=== PATIENT | male | born 1995 | race Caucasian/White ===

== ENCOUNTER → 2018-06-11 | Outpatient (CLI) | payer OTHER, SELFPAY ==
[2018-06-05 13:33] VITALS: BMI 21.4
--- NOTE | 2018-06-11 17:50 | RAD_ITS ---
STUDY: X-RAY CHEST REASON FOR EXAM: Male, 22 years old. Pneumonia TECHNIQUE: Frontal and lateral views COMPARISON: None. FINDINGS: The lungs are expanded. There is a lingular infiltrate. Faint nodular densities at the right mid lung field. Normal size heart. Normal mediastinum and evan. Normal visualized pulmonary arteries. Normal visualized aortic arch and descending thoracic aorta. Normal visualized thoracic spine. Normal visualized ribs, clavicles, and shoulders. There is no demonstrated abnormality of the visualized soft tissue structures of the upper abdomen. RAD/Chest PA and Lateral IMPRESSION: Lingular infiltrate. Faint right mid lung nodular densities. Electronically Signed: Angus Rodriguez DO at 20:03 EDT Tel [phone], Service support ,
== END | disposition home or self-care (01) ==
LOC: RAD 17:41
PROVIDERS: Family Provider Family Medicine; PCP Family Medicine; Referring Provider Family Medicine; Visit Provider Family Medicine
DX: J18.9 Pneumonia, unspecified organism (principal)
CPT/HCPCS: 71046

== ENCOUNTER → 2018-06-18 | Outpatient (CLI) | payer OTHER, SELFPAY ==
[2018-06-05 13:33] VITALS: BMI 21.4
--- NOTE | 2018-06-18 18:07 | RAD_ITS ---
STUDY: X-RAY CHEST REASON FOR EXAM: Male, 23 years old. Pneumonia TECHNIQUE: PA and lateral views of the chest. COMPARISON: 06/11/2017 FINDINGS: There is decreased airspace opacification along the lingula. Previously seen faint right mid lung nodular densities are not visualized on current exam. There is no demonstrated pleural abnormality. Normal size heart. Normal mediastinum and evan. Normal visualized pulmonary arteries. Normal visualized aortic arch and descending thoracic aorta. Normal visualized thoracic spine. Normal visualized ribs, clavicles, and shoulders. There is no demonstrated abnormality of the visualized soft tissue structures of the upper abdomen. RAD/Chest PA and Lateral IMPRESSION: Resolving lingular pneumonia. Follow-up examination to resolution recommended. Electronically Signed: Gypsy Dorado MD at 3:03 EDT , Service support ,
[2018-06-18 18:30] LABS: Absolute Lymphocyte Count 2.65 X10^3/ul (0.83-4.51); Absolute Neutrophil Count 3.2 X10^3/uL (2.0-7.7); Basophil# 0.04 X10^3/uL; Basophil% 0.6 % (0-1); Eosinophil# 0.22 X10^3/uL; Eosinophils% 3.3 % (0-5); Hematocrit 45.3 % (40-54); Hemoglobin 15.6 g/dl (13.0-16.5); Lymphocyte # 2.65 X10^3/ul (4.0); Lymphocyte % 39.4 % (19-41); Mean Corp Hgb Conc 34.4 g/gl (32-36); Mean Corpuscular Hgb 29.4 pg (27.0-32.0); Mean Corpuscular Volume 85.3 fL (80-94); Mean Platelet Vol. 9.6 fl (6.2-12.0); Monocyte# 0.63 X10^3/uL; Monocyte% 9.4 % (0-10); Neutrophil # 3.17 X10^3/uL (2.7-7.7); Neutrophil % 47.2 % (47-70); Platelet Count 375 K/mm3 (150-450); RBC Distribution Width SD 36.8 fl (35.1-43.9); Red Blood Count 5.31 M/mm3 (4.6-6.2); White Blood Count 6.7 K/mm3 (4.4-11.0)
[2018-06-18 18:31] LABS: POSITIVE COUNT NO; POSITIVE DIFFERENTIAL NO; POSITIVE MORPHOLOGY NO
[2018-06-18 19:12] LABS: ALB/GLOB Ratio 0.9 RATIO (0.9-2.4); AST(SGOT) 22 U/L (15-37); Alanine Aminotransfer ALT/SGPT 36 U/L (16-61); Albumin, Serum 3.6 g/dL (3.2-5.0); Alkaline Phosphatase 90 U/L (45-117); Anion Gap 6 (5-15); BUN 17 mg/dL (7-18); BUN/Creat Ratio 15.7 RATIO (10-20); Calcium,Total 8.8 mg/dL (8.5-10.1); Chloride 105 mmol/L (98-107); Creatinine, Serum 1.08 mg/dL (0.70-1.30); EST Glomerular Filtration Rate 92 mL/min (>60); Est Glom Filt Rate - Afr Amer 111 mL/min (>60); Globulin 4.1 g/dL (2.2-4.2); Glucose 94 mg/dL (74-106); Protein, Total 7.7 g/dL (6.4-8.2); Sodium Level 142 mmol/L (136-145)
== END | disposition home or self-care (01) ==
LOC: LAB 17:53
PROVIDERS: Family Provider Family Medicine; PCP Family Medicine; Referring Provider Family Medicine; Visit Provider Family Medicine
DX: J18.9 Pneumonia, unspecified organism (principal); R10.9 Unspecified abdominal pain
CPT/HCPCS: 36415; 71046; 80053; 85025

== ENCOUNTER 2018-06-23 21:47 | Emergency (ER) | payer OTHER, SELFPAY ==
[2018-06-05 13:33] VITALS: BMI 21.4
[2018-06-23 21:47] VITALS: BP 114/67; PULSE 82; RESP 16; TEMP 36.1; O2SAT 99; BMI 21.4
[2018-06-23] MEDS: Ketorolac 30 MG/ML Syringe IV (22:29)
[2018-06-23 22:45] LABS: Absolute Lymphocyte Count 2.06 X10^3/ul (0.83-4.51); Absolute Neutrophil Count 9.3 X10^3/uL (2.0-7.7); Basophil# 0.03 X10^3/uL; Basophil% 0.2 % (0-1); Eosinophil# 0.15 X10^3/uL; Eosinophils% 1.2 % (0-5); Hematocrit 50.5 % (40-54); Lymphocyte # 2.06 X10^3/ul (4.0); Lymphocyte % 16.4 % (19-41); Mean Corp Hgb Conc 35.6 g/gl (32-36); Mean Corpuscular Volume 81.3 fL (80-94); Mean Platelet Vol. 10.4 fl (6.2-12.0); Monocyte# 0.99 X10^3/uL; Monocyte% 7.9 % (0-10); Neutrophil # 9.32 X10^3/uL (2.7-7.7); Neutrophil % 74.1 % (47-70); Platelet Count 350 K/mm3 (150-450); RBC Distribution Width CV 12.5 % (11.6-14.6); RBC Distribution Width SD 37.3 fl (35.1-43.9); Red Blood Count 6.21 M/mm3 (4.6-6.2); White Blood Count 12.6 K/mm3 (4.4-11.0)
[2018-06-23 22:46] LABS: POSITIVE COUNT NO; POSITIVE DIFFERENTIAL NO; POSITIVE MORPHOLOGY NO
--- NOTE | 2018-06-23 22:50 | RAD_ITS ---
STUDY: X-RAY CHEST REASON FOR EXAM: Male, 23 years old. Right upper quadrant pain. TECHNIQUE: PA and lateral chest. COMPARISON: 06/18/2018. FINDINGS: There is minimal stranding in the lingula consistent with near complete resolution of previously demonstrated pneumonia. The lungs are otherwise clear. There is no pleural effusion. Normal size heart. Normal mediastinum and evan. Normal visualized pulmonary arteries. Normal visualized aortic arch and descending thoracic aorta. Normal visualized thoracic spine. Normal visualized ribs, clavicles, and shoulders. There is no demonstrated abnormality of the visualized soft tissue structures of the upper abdomen. RAD/Chest PA and Lateral IMPRESSION: Near complete resolution of lingular pneumonia. Electronically Signed: Melissa Aguilar MD at 23:33 EDT Tel , Service support ,
--- NOTE | 2018-06-23 22:50 | RAD_ITS ---
STUDY: X-RAY - UNILATERAL RIBS ( RIGHT ) REASON FOR EXAM: Male, 23 years old. Right upper abdominal pain. TECHNIQUE: 4 view(s) of the ribs. COMPARISON: None. FINDINGS: Normal visualized ribs without a demonstrated fracture. The visualized lung is clear and expanded. RAD/Ribs Unil 2V No CXR IMPRESSION: Normal x-ray examination of the ribs. Electronically Signed: Melissa Aguilar MD at 23:35 EDT Tel , Service support ,
[2018-06-23 22:57] LABS: AST(SGOT) 20 U/L (15-37); Alanine Aminotransfer ALT/SGPT 31 U/L (16-61); Albumin, Serum 4.4 g/dL (3.2-5.0); Alkaline Phosphatase 103 U/L (45-117); Anion Gap 6 (5-15); BUN 17 mg/dL (7-18); BUN/Creat Ratio 14.4 RATIO (10-20); Calcium,Total 9.4 mg/dL (8.5-10.1); Chloride 104 mmol/L (98-107); Creatinine, Serum 1.18 mg/dL (0.70-1.30); EST Glomerular Filtration Rate 83 mL/min (>60); Est Glom Filt Rate - Afr Amer 100 mL/min (>60); Estimated Creatinine Clearance 92.12 ml/min; Globulin 4.3 g/dL (2.2-4.2); Glucose 93 mg/dL (74-106); Lipase 157 U/L (73-393); Potassium 3.7 mmol/L (3.5-5.1); Protein, Total 8.7 g/dL (6.4-8.2); Sodium Level 140 mmol/L (136-145)
--- NOTE | 2018-06-24 00:16 | ED.DEP ---
ED Disposition - Plan for ED Patient: Instructions: ED Strain Chest Wall Referrals: Arnav Hallman MD [Primary Care Provider] -
[2018-06-24 00:27] VITALS: BP 103/70; PULSE 82; O2SAT 96
--- NOTE | 2018-06-24 05:38 | ED.DCSUM_ITS ---
- ER Visit Summary Date of Service: 06/24/18 Chief Complaint: Abdominal pain History of Present Illness: The patient is a 23 M who presents with abdominal pain. This been present for a week. He has had a recent influenza-like illness. About 2 to 3 weeks ago he had fever, headache, chills. He was diagnos ed with pneumonia. Patient reports that this was on the right side. Last week he was seen due to ongoing symptoms and some pain beginning on the right lower chest and upper abdomen. He had a repeat x-ray which showed improving pneumonia. He states he is scheduled for an outpatient CT but has not had this yet. He reports nausea without vomiting. He has had some diarrhea. He continues to have productive cough. He has not had a recent fever. Physical Examination: Afebrile vitals normal Moist mucous membranes Heart regular rate and rhythm Lungs are clear without rales rhonchi or wheezes Patient has of tenderness along the right lower chest wall and right upper quadrant of the abdomen Abdomen soft with right upper quadrant tenderness no guarding no rebound nondistended Test Results: Labs notable for white count 12.6. Normal hepatic function lipase. Chest x-ray shows near complete resolution of lingular pneumonia. Rib x-rays are normal. Emergency Department Course and Treatment: Work-up as above is unremarkable. His labs are notable only for mild leukocytosis, he is undergoing treatment for pneumonia. I do believe that his pain is musculoskeletal nature related to coughing. It is easily reproducible and worsened with certain positions. He was advised on supportive care. He has not been taking medication such as anti- inflammatories at home because he was not sure what he could take with his antibiotics. He has naproxen at home and was advised to use this. He was advised on supportive care. He understands to return for new or worsening symptoms and was discharged home. Treatment Plan: [] Disposition: Discharge Impression: Chest wall pain This note was generated with [employer] dictation software. It may contain incorrect words, spelling, and punctuation that were not noted in review of the chart prior to signing ED Disposition - Plan for ED Patient: Disposition: Home or Assisted Living Instructions: ED Strain Chest Wall Referrals: Arnav Hallman MD [Primary Care Provider] -
== END 2018-06-24 00:29 | disposition home or self-care (01) ==
PROVIDERS: Emergency Provider Emergency Medicine; Family Provider Family Medicine; PCP Family Medicine
DX: R07.89 Other chest pain (principal)
CPT/HCPCS: 71046; 71100; 80053; 83690; 85025; 96374; 99283

== ENCOUNTER → 2019-08-13 10:29 | Outpatient (CLI) | payer OTHER, SELFPAY ==
[2019-08-13 12:33] LABS: Erythrocyte Sedimentation Rate 3 mm/hr (0-15)
[2019-08-13 12:36] LABS: Absolute Lymphocyte Count 3.47 X10^3/uL (0.83-4.51); Absolute Neutrophil Count 3.2 X10^3/uL (2.0-7.7); Basophil# 0.04 X10^3/uL; Basophil% 0.5 % (0-1); Eosinophil# 0.16 X10^3/uL; Eosinophils% 2.1 % (0-5); Hematocrit 46.3 % (40-54); Lymphocyte # 3.47 X10^3/ul (4.0); Lymphocyte % 44.9 % (19-41); Mean Corp Hgb Conc 34.6 g/dL (32-36); Mean Corpuscular Hgb 30.8 pg (27.0-32.0); Mean Corpuscular Volume 89.2 fL (80-94); Mean Platelet Vol. 11.4 fl (6.2-12.0); Monocyte# 0.82 X10^3/uL; Monocyte% 10.6 % (0-10); NRBC Flagged by Analyzer 0 % (0-5); Neutrophil # 3.21 X10^3/uL (2.7-7.7); Neutrophil % 41.6 % (47-70); Platelet Count 256 K/mm3 (150-450); RBC Distribution Width CV 11.8 % (11.6-14.6); RBC Distribution Width SD 37.6 fl (35.1-43.9); Red Blood Count 5.19 M/mm3 (4.6-6.2); White Blood Count 7.7 K/mm3 (4.4-11.0)
[2019-08-13 12:57] LABS: ALB/GLOB Ratio 1.3 RATIO (0.9-2.4); AST(SGOT) 13 U/L (15-37); Alanine Aminotransfer ALT/SGPT 22 U/L (16-61); Albumin, Serum 4.2 g/dL (3.2-5.0); Alkaline Phosphatase 77 U/L (45-117); Anion Gap 7 (5-15); BUN 13 mg/dL (7-18); BUN/Creat Ratio 12.5 RATIO (10-20); Calcium,Total 8.9 mg/dL (8.5-10.1); Chloride 103 mmol/L (98-107); Creatinine, Serum 1.04 mg/dL (0.70-1.30); EST Glomerular Filtration Rate 95 mL/min (>60); Est Glom Filt Rate - Afr Amer 115 mL/min (>60); Globulin 3.3 g/dL (2.2-4.2); Glucose 93 mg/dL (74-106); Potassium 3.8 mmol/L (3.5-5.1); Protein, Total 7.5 g/dL (6.4-8.2); Sodium Level 138 mmol/L (136-145); Thyroid Stim Hormone (TSH) 4.22 uIU/mL (0.358-3.74)
[2019-08-14 16:08] LABS: Endomysial Antibody IgA Negative (Negative)
[2019-08-17 16:07] LABS: Beef <0.10 kU/L (Class 0); Corn <0.10 kU/L (Class 0); Egg, Whole <0.10 kU/L (Class 0); Milk (Cow) <0.10 kU/L (Class 0); Peanut <0.10 kU/L (Class 0); Pork <0.10 kU/L (Class 0); Soybean <0.10 kU/L (Class 0); Wheat <0.10 kU/L (Class 0)
[2019-08-17 17:45] LABS: Deamidated Gliadin IgA 3 units (0-19); Deamidated Gliadin IgG 2 units (0-19); Immunoglobulin A 279 mg/dL (90-386); t-Transglutaminase IgA <2 U/mL (0-3)
[2019-08-17 17:58] LABS: Chocolate <0.10 kU/L (Class 0)
== END ==
PROVIDERS: PCP Family Medicine; Visit Provider Family Medicine
DX: R10.9 Unspecified abdominal pain (principal); R79.89 Other specified abnormal findings of blood chemistry
CPT/HCPCS: 36415; 80053; 82784; 83516; 84439; 84443; 85025; 85652; 86003; 86005; 86255

== ENCOUNTER 2020-09-06 13:30 | Emergency (ER) | payer OTHER, SELFPAY ==
[2020-09-06 13:31] VITALS: BP 144/68; PULSE 66; RESP 16; TEMP 36.7; O2SAT 99; BMI 25.4
--- NOTE | 2020-09-06 15:22 | EKG12_ITS ---
Test Reason : DIZZY Blood Pressure : / mmHG Vent. Rate : 057 BPM Atrial Rate : 057 BPM P-R Int : 136 ms QRS Dur : 088 ms QT Int : 388 ms P-R-T Axes : 047 090 055 degrees QTc Int : 377 ms Sinus bradycardia Rightward axis Poor R wave progression Confirmed by BRADEN DELCID, MARIUSZ ([id number]), medical editor LISA SORIANO ([id number]) on 09/09/2020 1:22:00 PM Referred By: [place] Confirmed By:MARIUSZ FELICIANO MD
[2020-09-06] MEDS: Meclizine HCl 25 MG Tablet PO (15:29)
--- NOTE | 2020-09-06 15:37 | EDS_ITS ---
HPI History of Present Illness Chief Complaint: Dizziness Informant: patient Narrative Narrative: Patient is a 25-year-old previously healthy male who presents to the emergency department for dizziness/lightheadedness. This has been present over the past 6 days. At the onset of the symptoms she did get stung by a jellyfish in the [facility]. He states that the area that he was stung has healed well. His dizziness has been persistent since then. He feels like there is in his peripheral vision parts of the room feels like it spinning. He has never had this before. His vision does feel fuzzy to him. Denies any ear pain, ringing. No neck pain but has had some intermittent stiffness. He denies any chest pain, shortness of breath or heart palpitations. No abdominal pain or nausea/vomiting. He denies any weakness or loss of sensation in any extremity. Patient had drank some alcohol on the vacation but denies any drug use. He states he has been drinking plenty water and does not feel he is dehydrated. [facility] Medical History (Updated 09/06/20 @ 17:[address] Orville Saenz DO) NECK AND BACK PAIN Shortness of breath Shoulder pain Home Medications NK 09/06/20 [History Last Taken Unknown] Allergy/AdvReac Type Severity Reaction Status Date / Time amoxicillin AdvReac Mild DIARRHEA Verified 09/06/20 13:30 amoxicillin trihydrate AdvReac Diarrhea Verified 09/06/20 13:30 [From Augmentin] potassium clavulanate AdvReac Diarrhea Verified 09/06/20 13:30 [From Augmentin] Social History Smoking Status: Never smoker alcohol intake: never ROS ROS ED Constitutional Constitutional ED: Denies chills or fever(s) Eyes Eyes: Denies change in vision ENT ENT ED: Denies epistaxis or rhinorrhea Cardiovascular Cardiovascular: Denies chest pain or palpitations Respiratory/Chest Respiratory/Chest: Denies cough, dyspnea or dyspnea on exertion Gastrointestinal Gastrointestinal: Denies abdominal pain, diarrhea or vomiting Genitourinary Genitourinary ED: Denies dysuria, hematuria or urinary frequency Musculoskeletal Musculoskeletal: Denies back pain or neck pain Integumentary Denies rash Neurologic Neurologic: Reports other Details: Dizziness ; Denies headache(s) or weakness EXAM Physical Exam Const Vital Signs: 09/06/20 13:31 09/06/20 14:51 09/06/20 16:21 Temperature 98.0 F Temperature Source Temporal Pulse Rate 66 Pulse Rate [Lying] 61 Pulse Rate [Sitting] 58 L Pulse Rate [Standing] 68 Respiratory Rate 16 Respiratory Effort Normal Non-Labored Respiratory Pattern Normal Blood Pressure 144/68 H Blood Pressure [Lying] 125/61 H Blood Pressure [Sitting] 135/69 H Blood Pressure [Standing] 146/74 H Blood Pressure Mean 93 Blood Pressure Mean [Lying] 82 Blood Pressure Mean [Sitting] 91 Blood Pressure Mean [Standing] 98 Pulse Ox 99 Oxygen Delivery Method Room Air Positive well nourished and well developed General Appearance ED: well developed and NAD HEENT Reports normocephalic, head/scalp atraumatic, TM's clear and moist mucous membranes Tympanic Membrane ED: Yes TM's clear Eyes PERRL and EOMs intact bilaterally Eyes Narrative: No nystagmus appreciated on examination. Neck no lymphadenopathy and supple General: Negative for tenderness Chest Wall inspection of chest normal Resp normal respiratory effort and clear to auscultation bilaterally Auscultation: Negative for rales, rhonchi or wheezes Cardio regular rate, regular rhythm and no murmurs GI normal to inspection, nondistended, normoactive bowel sounds and non-tender Palpation: soft; Negative for guarding or rebound tenderness present Back/Spine no CVA tenderness Extremity normal to inspection General Extremety ED: Negative for edema or tenderness General Extremity: Negative for edema Neuro oriented x3, CN's II-XII intact bilaterally and no sensory deficits noted Sensorium / Orientation: alert Motor Exam: strength 5/5 throughout Psych mental status grossly normal Skin no rashes or lesions noted MDM MDM MDM Narrative Medical decision making narrative: Patient presents to the emergency department for dizziness, lightheadedness. This is been ongoing for 6 days. Upon arrival to the ED vital signs within normal limits. He is in no acute distress. I did do work-up including blood counts, electrolytes and heart enzyme. This did not reveal any significant acute abnormality except his liver enzymes are mildly high. I did discuss this with the patient. He was still dizzy despite taking the meclizine so a CT scan of the head was performed. This did show cerebellar ectopia but otherwise no acute intracranial abnormality. 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 This time I do feel he safe for discharge home. I very low concern for stroke. He is to follow-up with his PCP and may require an MRI if this continues on. He does feel comfortable with this plan. He is discharged home in stable condition. He does need repeat lab work to make sure his liver enzymes returned to normal as well. All questions were answered. Lab Data Labs: Laboratory Results - last 24 hr 09/06/20 09/06/20 15:35 15:35 WBC 6.4 RBC 5.77 Hgb 17.0 H Hct 49.7 MCV 86.1 MCH 29.5 MCHC 34.2 RDW Std Deviation 37.8 RDW Coeff of Clary 11.9 Plt Count 243 MPV 11.0 Immature Gran % (Auto) 0.300 Neut % (Auto) 41.4 L Lymph % (Auto) 44.7 H [place] % (Auto) 12.0 H Eos % (Auto) 1.1 Baso % (Auto) 0.5 Absolute Neuts (auto) 2.6 Absolute Lymphs (auto) 2.84 Nucleated RBC % 0 Sodium 140 Potassium 3.7 Chloride 105 Carbon Dioxide 29.0 Anion Gap 6 BUN 15 Creatinine 1.23 Estim Creat Clear Calc 96.44 Est GFR (MDRD) Af Amer 94 Est GFR (MDRD) Non-Af 77 BUN/Creatinine Ratio 12.2 Glucose 74 Calcium 9.0 Total Bilirubin 0.60 AST 109 H ALT 236 H Alkaline Phosphatase 91 Troponin I High Sens < 3.0 L Total Protein 7.8 Albumin 4.0 Globulin 3.8 Albumin/Globulin Ratio 1.1 Radiography Diagnostic Testing: Radiology Impression Brain CT 09/06/20 16:23 IMPRESSION: 1. No acute intracranial hemorrhage or mass effect. 2. Cerebellar ectopia. Electronically Signed: Ilan Feng MD ([place]) at 16:53 EDT , Service support , EKG Initial EKG: Attestation: I personally reviewed and interpreted this EKG as follows: (Rate of 57 bpm in sinus bradycardia. Normal intervals. Normal axis. No significant ST elevations or depressions. No T wave abnormalities.) Discharge Plan Triage Chief Complaint: Dizziness ED Provider: Orville Saenz Dx/Rx/DC Orders Clinical Impression: Dizziness, Transaminitis, Cerebellar tonsillar ectopia Instructions: ED Dizziness, Uncertain Cause Prescriptions: No Action NK RF: 0 Primary Care Provider: Anrav Hallman Referrals: Arnav Hallman MD [Primary Care Provider] - 1 Day Disposition Disposition: Home, Self Care Discharge Date/Time: 09/06/20 17:33
[2020-09-06 16:08] LABS: Absolute Lymphocyte Count 2.84 X10^3/uL (0.83-4.51); Absolute Neutrophil Count 2.6 X10^3/uL (2.0-7.7); Basophil# 0.03 X10^3/uL; Basophil% 0.5 % (0-1); Eosinophil# 0.07 X10^3/uL; Eosinophils% 1.1 % (0-5); Hematocrit 49.7 % (40-54); Lymphocyte # 2.84 X10^3/ul (0.83-4.51); Lymphocyte % 44.7 % (19-41); Mean Corp Hgb Conc 34.2 g/dL (32-36); Mean Corpuscular Hgb 29.5 pg (27.0-32.0); Mean Corpuscular Volume 86.1 fL (80-94); Monocyte# 0.76 X10^3/uL; NRBC Flagged by Analyzer 0 % (0-5); Neutrophil # 2.63 X10^3/uL (2.7-7.7); Neutrophil % 41.4 % (47-70); Platelet Count 243 K/mm3 (150-450); RBC Distribution Width CV 11.9 % (11.6-14.6); RBC Distribution Width SD 37.8 fl (35.1-43.9); Red Blood Count 5.77 M/mm3 (4.6-6.2); White Blood Count 6.4 K/mm3 (4.4-11.0)
[2020-09-06 16:21] VITALS: BP 125/61; BP 135/69; BP 146/74; PULSE 58; PULSE 61; PULSE 68
--- NOTE | 2020-09-06 16:23 | CT_ITS ---
STUDY: CT BRAIN WITHOUT CONTRAST REASON FOR EXAM: Male, 25 years old. Dizziness RADIATION DOSAGE (If Supplied By Facility): CTDIvol = ( 44.99 ) mGy, DLP = ( 745.49 ) mGycm TECHNIQUE: Transaxial CT imaging of the brain was performed without administration of intravenous contrast material. Individualized dose optimization techniques were used for this CT. COMPARISON: No relevant priors. FINDINGS: Normal soft tissue structures. Normal calvarium. Normal size ventricles and extra-axial spaces for the patient''s age. Normal white matter tracts of the cerebral hemispheres. Normal basal ganglia and thalami. Normal brainstem. Mild cerebellar ectopia. There is no intracranial hemorrhage. There are no findings of an acute ischemic infarction. Normal visualized paranasal sinuses. CT/Brain/Head without Contrast IMPRESSION: 1. No acute intracranial hemorrhage or mass effect. 2. Cerebellar ectopia. Electronically Signed: Ilan Feng MD ([place]) at 16:53 EDT , Service support ,
[2020-09-06 16:27] LABS: ALB/GLOB Ratio 1.1 RATIO (0.9-2.4); AST(SGOT) 109 U/L (15-37); Alanine Aminotransfer ALT/SGPT 236 U/L (16-61); Alkaline Phosphatase 91 U/L (45-117); Anion Gap 6 (5-15); BUN 15 mg/dL (7-18); BUN/Creat Ratio 12.2 RATIO (10-20); Chloride 105 mmol/L (98-107); Creatinine, Serum 1.23 mg/dL (0.70-1.30); EST Glomerular Filtration Rate 77 mL/min (>60); Est Glom Filt Rate - Afr Amer 94 mL/min (>60); Estimated Creatinine Clearance 96.44 ml/min; Globulin 3.8 g/dL (2.2-4.2); Glucose 74 mg/dL (74-106); Potassium 3.7 mmol/L (3.5-5.1); Protein, Total 7.8 g/dL (6.4-8.2); Sodium Level 140 mmol/L (136-145); Troponin-I HS < 3.0 pg/mL (3.0-78.5)
== END 2020-09-06 17:33 | disposition home or self-care (01) ==
PROVIDERS: Emergency Provider Emergency Medicine; PCP Family Medicine
DX: R42 Dizziness and giddiness (principal)
CPT/HCPCS: 70450; 80053; 84484; 85025; 93005; 99284; A4216

== ENCOUNTER → 2021-06-14 | Outpatient (CLI) | payer OTHER, SELFPAY | END | disposition home or self-care (01) | LOC: LAB 10:12 | PROVIDERS: PCP Family Medicine; Visit Provider Nurse Practitioner Family | DX: M86.9 Osteomyelitis, unspecified (principal) | CPT/HCPCS: 87070; 87077; 87205 ==

== ENCOUNTER 2022-01-02 16:59 | Emergency (ER) | payer OTHER, SELFPAY ==
[2022-01-02 17:00] VITALS: BP 149/94; PULSE 86; RESP 18; TEMP 36.6; O2SAT 100; BMI 26.8
--- NOTE | 2022-01-02 17:07 | ED.RN ---
THIS RN CONTACTED [facility]. WILL BE ENROUTE FOR TESTING
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
[2022-01-02] MEDS: Acetaminophen 500 MG Tablet 1000 MG PO (19:40)
[2022-01-02 19:41] VITALS: O2SAT 98
[2022-01-02] MEDS: Ketorolac 15 MG/ML Vial IV (19:51)
[2022-01-02 19:54] VITALS: BP 127/73; PULSE 72; RESP 15; O2SAT 97
== END 2022-01-02 19:55 | disposition home or self-care (01) ==
PROVIDERS: Emergency Provider Emergency Medicine; PCP Family Medicine; Visit Provider Emergency Medicine
DX: S00.81XA Abrasion of other part of head, initial encounter (principal); S16.1XXA Strain of muscle, fascia and tendon at neck level, initial encounter; S30.1XXA Contusion of abdominal wall, initial encounter; V49.49XA Driver injured in collision with other motor vehicles in traffic accident, initial encounter
CPT/HCPCS: 70450; 71260; 72125; 74177; 96374; 99285; Q9967; A4216

== ENCOUNTER → 2022-01-21 | Outpatient (CLI) | payer OTHER, SELFPAY ==
[2022-01-21 13:02] LABS: Anion Gap 7 (5-15); BUN 15 mg/dL (7-18); BUN/Creat Ratio 12.8 RATIO (10-20); Calcium,Total 9.2 mg/dL (8.5-10.1); Chloride 105 mmol/L (98-107); Cholesterol 154 mg/dL (200); Creatinine, Serum 1.17 mg/dL (0.70-1.30); EST Glomerular Filtration Rate 81 mL/min (>60); Est Glom Filt Rate - Afr Amer 98 mL/min (>60); Glucose 94 mg/dL (74-106); High Density Lipoprotein 55 mg/dL; Potassium 3.9 mmol/L (3.5-5.1); Sodium Level 140 mmol/L (136-145); Triglycerides 97 mg/dL; Very Low Density Lipoprotein 19 mg/dL (5-40)
== END | disposition home or self-care (01) ==
LOC: MFPLAB 10:48
PROVIDERS: PCP Family Medicine; Referring Provider Family Medicine; Visit Provider Nurse Practitioner Family
DX: Z13.1 Encounter for screening for diabetes mellitus (principal); Z13.220 Encounter for screening for lipoid disorders
CPT/HCPCS: 36415; 80048; 80061

== ENCOUNTER → 2022-06-15 | Outpatient (CLI) | payer OTHER, SELFPAY ==
[2022-06-15 12:24] LABS: Erythrocyte Sedimentation Rate 1 mm/hr (0-20)
[2022-06-15 12:25] LABS: Absolute Lymphocyte Count 1.97 X10^3/uL (0.83-4.51); Basophil# 0.02 X10^3/uL; Basophil% 0.4 % (0-1); Eosinophils% 2.1 % (0-5); Hematocrit 48.9 % (40-54); Hemoglobin 16.7 g/dL (13.0-16.5); Lymphocyte # 1.97 X10^3/ul (0.83-4.51); Lymphocyte % 42.2 % (19-41); Mean Corp Hgb Conc 34.2 g/dL (32-36); Mean Corpuscular Hgb 30.7 pg (27.0-32.0); Mean Corpuscular Volume 89.9 fL (80-94); Mean Platelet Vol. 10.9 fl (6.2-12.0); Monocyte# 0.54 X10^3/uL; Monocyte% 11.6 % (0-10); NRBC Flagged by Analyzer 0 % (0-5); Neutrophil # 2.03 X10^3/uL (2.7-7.7); Neutrophil % 43.5 % (47-70); Platelet Count 238 K/mm3 (150-450); RBC Distribution Width CV 11.6 % (11.6-14.6); RBC Distribution Width SD 37.9 fl (35.1-43.9); Red Blood Count 5.44 M/mm3 (4.6-6.2); White Blood Count 4.7 K/mm3 (4.4-11.0)
[2022-06-15 12:42] LABS: ALB/GLOB Ratio 1.1 RATIO (0.9-2.4); AST(SGOT) 19 U/L (15-37); Alanine Aminotransfer ALT/SGPT 25 U/L (16-61); Alkaline Phosphatase 90 U/L (45-117); Anion Gap 6 (5-15); BUN 15 mg/dL (7-18); BUN/Creat Ratio 13.4 RATIO (10-20); Calcium,Total 9.3 mg/dL (8.5-10.1); Chloride 107 mmol/L (98-107); Creatinine, Serum 1.12 mg/dL (0.70-1.30); EST Glomerular Filtration Rate 85 mL/min (>60); Est Glom Filt Rate - Afr Amer 103 mL/min (>60); Globulin 3.6 g/dL (2.2-4.2); Glucose 98 mg/dL (74-106); Potassium 3.8 mmol/L (3.5-5.1); Protein, Total 7.6 g/dL (6.4-8.2); Sodium Level 141 mmol/L (136-145)
[2022-06-16 16:09] LABS: Deamidated Gliadin IgA 6 units (0-19); Deamidated Gliadin IgG 4 units (0-19); Endomysial Antibody IgA Negative (Negative); Immunoglobulin A 274 mg/dL (90-386); t-Transglutaminase IgA <2 U/mL (0-3)
== END | disposition home or self-care (01) ==
LOC: MFPLAB 11:08
PROVIDERS: PCP Family Medicine; Visit Provider Family Medicine
DX: R10.9 Unspecified abdominal pain (principal); R74.8 Abnormal levels of other serum enzymes
CPT/HCPCS: 36415; 80053; 82784; 83516; 85025; 85652; 86255

== ENCOUNTER 2024-07-01 05:17 | Emergency (ER) | payer OTHER, SELFPAY ==
[2024-07-01 05:18] VITALS: BP 124/80; PULSE 61; RESP 18; TEMP 36.5; O2SAT 99; BMI 25.2
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
[2024-07-01 05:39] VITALS: BP 117/64; PULSE 69; RESP 18; TEMP 36.7; O2SAT 99
[2024-07-01] MEDS: Doxycycline 100 MG CAPSULE 200 MG PO (05:45)
== END 2024-07-01 05:53 | disposition home or self-care (01) ==
LOC: ED 05:52
PROVIDERS: Emergency Provider Emergency Medicine; PCP Family Medicine; Visit Provider Emergency Medicine
DX: S10.96XA Insect bite of unspecified part of neck, initial encounter (principal); W57.XXXA Bitten or stung by nonvenomous insect and other nonvenomous arthropods, initial encounter
CPT/HCPCS: 99283

== ENCOUNTER 2025-02-12 08:33 | Emergency (ER) | payer OTHER, SELFPAY ==
[2025-02-12 08:34] VITALS: BP 133/94; PULSE 92; RESP 20; TEMP 36.5; O2SAT 100; BMI 26.4
[2025-02-12 08:36] VITALS: BP 133/94; PULSE 79; RESP 20; TEMP 36.3; O2SAT 99; BMI 26.4
--- NOTE | 2025-02-12 08:40 | EKG12_ITS ---
Test Reason : CP Blood Pressure : */* mmHG Vent. Rate : 84 BPM Atrial Rate : 84 BPM P-R Int : 152 ms QRS Dur : 86 ms QT Int : 344 ms P-R-T Axes : 78 85 54 degrees QTcB Int : 406 ms Normal sinus rhythm with sinus arrhythmia Normal ECG Confirmed by Nhan Pickett ([id number]), assistant film editor ZENOBIA BROWN ([id number]) on 02/17/2025 9:07:47 AM Referred By: TAYLOR Confirmed By: Nhan Pickett
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
--- NOTE | 2025-02-12 08:56 | PCA ---
THIS US COMPLETED THE RELEASE FOR MEDICAL RECORDS FORM AND THE PT SIGNED, TO THEN SEND TO COUNSELING CENTER DIRECTOR OFFICE PER REQUEST OF DIRECTOR
--- NOTE | 2025-02-12 09:00 | CT_ITS ---
PROCEDURE: CHEST WITH CONTRAST; SPINE CERVICAL WITHOUT CONTRAS N/A REASON FOR EXAM: CHEST WALL TRAUMA; TRAUMA TECHNIQUE: Procedure Code: CTCHW; CTSPC Modality: CT Procedure: CHEST WITH CONTRAST; SPINE CERVICAL WITHOUT CONTRAS Coronal and Sagittal reconstruction series were provided. CONTRAST: Isovue 370 VOLUME: 75 mL One or more dose reduction techniques were used (e.g., Automated exposure control, adjustment of the mA and/or kV according to patient size, use of iterative reconstruction technique). RADIATION DOSE SUMMARY: CTDlvol: 17.71 mGy DLP: 1158.41 mGycm COMPARISON: CT chest 01/02/2022. FINDINGS: CT chest: Hardware: Monitor electrodes overlie the chest. Lymph nodes: No lymphadenopathy. Heart and Vasculature: Unremarkable. Lungs and Airways: Clear. Pleura: No pleural effusion or pneumothorax. Bones: No acute bony abnormalities. CT cervical spine: Vertebrae: No acute bony abnormalities. Disc levels: Unremarkable. Alignment: Anatomical. Soft tissues: No soft tissue abnormalities. The lungs are clear. CT/Spine Cervical without Contras IMPRESSION: Coronary artery calcification (CAC) is absent No acute injury to the cervical spine or chest. Reading Location: [id number]
--- NOTE | 2025-02-12 09:00 | CT_ITS ---
PROCEDURE: CHEST WITH CONTRAST; SPINE CERVICAL WITHOUT CONTRAS N/A REASON FOR EXAM: CHEST WALL TRAUMA; TRAUMA TECHNIQUE: Procedure Code: CTCHW; CTSPC Modality: CT Procedure: CHEST WITH CONTRAST; SPINE CERVICAL WITHOUT CONTRAS Coronal and Sagittal reconstruction series were provided. CONTRAST: Isovue 370 VOLUME: 75 mL One or more dose reduction techniques were used (e.g., Automated exposure control, adjustment of the mA and/or kV according to patient size, use of iterative reconstruction technique). RADIATION DOSE SUMMARY: CTDlvol: 17.71 mGy DLP: 1158.41 mGycm COMPARISON: CT chest 01/02/2022. FINDINGS: CT chest: Hardware: Monitor electrodes overlie the chest. Lymph nodes: No lymphadenopathy. Heart and Vasculature: Unremarkable. Lungs and Airways: Clear. Pleura: No pleural effusion or pneumothorax. Bones: No acute bony abnormalities. CT cervical spine: Vertebrae: No acute bony abnormalities. Disc levels: Unremarkable. Alignment: Anatomical. Soft tissues: No soft tissue abnormalities. The lungs are clear. CT/Chest WITH Contrast IMPRESSION: Coronary artery calcification (CAC) is absent No acute injury to the cervical spine or chest. Reading Location: [id number]
[2025-02-12 09:11] LABS: Troponin T High Sensitivity < 6 ng/L (<=22)
--- OUTSIDE RECORDS SUMMARY | 2025-02-12 09:31 | XMS RPT_ITS | CCD ---
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 alternate sectionGoals may be documented in an alternate sectionGoals may be documented in an alternate section Care Teams (unrecognized sec tion and content) Team Status: Active Member Role Status Dates Dr. Arnav Hallman MD Family Provider Active Dr. Arnav Hallman MD Primary Care Provider Activ e Team Status: Inactive Member Role Status Dates Dr. Arnav Hallman MD Primary Care Provider, Atte nding Provider Active Team Status: Active Member Role Status Dates Dr. Roger Hallman MD Primary Care Provider Acti ve Team Status: Inactive Member Role Status Dates Dr. Roger Hallman MD Primary Care Provider Acti ve Start: July 01, 2024 End: July 01, 2024 Dr. Chandan Giraldo MD Emergency Provider Active Start: July 01, 2024 End: July 01, 2024 (unrecognized sect ion and content) No Status Records Found INFORMATION SOURCE (unrecogn ized section and content) DATE CREATED AUTHOR 07/11/2024 [facility] FOR RECORDS PERTAINING TO PATIENTS WHO ARE OR HAVE BEEN ENROLLED IN A CHEMICAL DEPENDENCY/SUBSTANCEABUSE PROGRAM, SOME INFORMATION MAY BE OMITTED. This clinical summary was aggregated from multiple sources. Caution should be exercised in using it in the provision of clinical care. This summary normalizes information from multiple sources, and as a consequence, information in this document may materially change the coding, format and clinical context of patient data. In addition, data may be omitted in some cases. CLINICAL DECISIONS SHOULD BE BASED ON THE PRIMARY CLINICAL RECORDS. [facility]. provides no warranty or guarantee of the accuracy or completeness of information in this document.
[2025-02-12 09:58] VITALS: BP 131/104; PULSE 84; RESP 16; TEMP 36.2; O2SAT 100
== END 2025-02-12 09:58 | disposition home or self-care (01) ==
PROVIDERS: Emergency Provider Emergency Medicine; PCP Family Medicine; Visit Provider Emergency Medicine
DX: S16.1XXA Strain of muscle, fascia and tendon at neck level, initial encounter (principal); S29.009A Unspecified injury of muscle and tendon of unspecified wall of thorax, initial encounter; S80.812A Abrasion, left lower leg, initial encounter
CPT/HCPCS: 71260; 72125; 84484; 93005; 99285; Q9967; A4216